=== PATIENT | female | born 1985 | race Hispanic/Latino ===

== ENCOUNTER 2018-07-25 10:41 | Day surgery (SDC) | payer OTHER ==
[2018-07-25] MEDS: NS 1,000 ML IV (11:20)
[2018-07-25] MEDS ORDERED: PROPOFOL 200 MG/20 ML VIAL As Ordered ×2 (11:25→11:29)
[2018-07-25] MEDS ORDERED: LIDOCAINE 2% INJ 100 MG/5 ML SDV (FOR ANES.) As Ordered ×2 (11:25→11:27)
[2018-07-25] MEDS ORDERED: fentaNYL 100 MCG/2 ML INJECTION (J3010) As Ordered (11:25)
[2018-07-25 11:28] LABS: BEDSIDE GLUCOSE 104 MG/DL (70-105)
[2018-07-25] MEDS ORDERED: ONDANSETRON 4MG/2ML VIAL (J2405) As Ordered (12:09)
[2018-07-25 12:27] LABS: BEDSIDE GLUCOSE 115 MG/DL (70-105)
== END 2018-07-25 14:05 | disposition home or self-care (01) ==
LOC: M OPP 10:41
DX: K22.8 Other specified diseases of esophagus (principal); K21.0 Gastro-esophageal reflux disease with esophagitis; K44.9 Diaphragmatic hernia without obstruction or gangrene; K29.70 Gastritis, unspecified, without bleeding; R10.13 Epigastric pain; E10.8 Type 1 diabetes mellitus with unspecified complications; Z79.4 Long term (current) use of insulin; Z91.89 Other specified personal risk factors, not elsewhere classified; Z98.51 Tubal ligation status; Z98.82 Breast implant status; Z98.61 Coronary angioplasty status
CPT/HCPCS: 43239